=== PATIENT | male | born 1980 | race Two or more races ===

== ENCOUNTER 2018-10-02 07:07 | Emergency (ER) | payer OTHER ==
[~2018-10-02] VITALS: Ht 165.1 cm; Wt 127.0 kg
[2018-10-02 07:16] VITALS: Ht 165.1 cm; Wt 127.0 kg
[2018-10-02 07:53] LABS: BASOPHIL % 0.4 % (0-2); PLATELET COUNT 202 x10^3mcL (130-400); RED CELL DISTRIBUTION WIDTH 14.3 % (11.5-14.5)
[2018-10-02 08:02] LABS: CALCIUM 8.4 mg/dL (8.5-10.1); CARBON DIOXIDE 23.7 mmol/L (21-32); CHLORIDE SERUM 103 mmol/L (98-107); CREATININE SERUM 1.3 mg/dL (0.7-1.3); GFR1 > 60 mL/min; GLUCOSE SERUM 134 mg/dL (74-106); POTASSIUM SERUM 4.2 mmol/L (3.5-5.1); SODIUM SERUM 139 mmol/L (136-145)
[2018-10-02 08:07] LABS: ALKALINE PHOSPHATASE 69 U/L (46-116); ALT/SGPT 55 U/L (16-63); AST/SGOT 30 U/L (15-37); BILIRUBIN TOTAL 0.4 mg/dL (0.20-1.00); TOTAL PROTEIN, SERUM 7.6 g/dL (6.4-8.2)
[2018-10-02 08:20] LABS: ALBUMIN 3.6 g/dL (3.4-5.0)
[2018-10-02 08:56] VITALS: BP 157/81
== END 2018-10-02 08:56 | disposition home or self-care (01) ==
LOC: ED 07:07
PROVIDERS: Emergency Medicine
DX: N20.0 Calculus of kidney (principal)
CPT/HCPCS: J1885; J7030

== ENCOUNTER 2019-04-03 21:18 | Emergency (ER) | payer OTHER ==
[~2019-04-03] VITALS: Ht 172.7 cm; Wt 132.7 kg
[2019-04-03 21:34] VITALS: BP 170/100; Ht 172.7 cm; Wt 132.7 kg
== END 2019-04-03 22:53 | disposition home or self-care (01) ==
LOC: ED 21:18
DX: H16.9 Unspecified keratitis (principal)
CPT/HCPCS: J1885